=== PATIENT | male | born 1965 | race Caucasian/White ===

== ENCOUNTER 2019-07-11 03:17 | Emergency (ER) | payer BC ==
[~2019-07-11] VITALS: Ht 170.2 cm; Wt 84.5 kg
[2019-07-11] MEDS ORDERED: dexamethasone sod phosphate 10mg/ml inj IV STA (03:31)
[2019-07-11] MEDS ORDERED: diphenhydrAMINE 50 mg/ml inj IV ONE (03:35)
[2019-07-11] MEDS ORDERED: ketorolac tromethamine 15mg/ml inj. IV ONE (03:35)
[2019-07-11] MEDS ORDERED: ceFAZolin 1GM/D5W- ADD-VANTAGE 50 ML IV ONE (03:35)
[2019-07-11] MEDS ORDERED: NAPR-56 PO (03:38)
[2019-07-11] MEDS ORDERED: CEPH500C5 PO (03:38)
[2019-07-11] MEDS ORDERED: TRIA15CR61 TP (03:38)
[2019-07-11] MEDS ORDERED: PRED20TA PO (03:38)
[2019-07-11 05:14] VITALS: BP 151/104
== END 2019-07-11 04:33 | disposition home or self-care (01) ==
LOC: ER 03:17
DX: L23.4 Allergic contact dermatitis due to dyes (principal); I10 Essential (primary) hypertension; J45.909 Unspecified asthma, uncomplicated; Z79.2 Long term (current) use of antibiotics; Z79.899 Other long term (current) drug therapy
CPT/HCPCS: 96365; 96375; 99284; J0690; J1100; J1200; J1885